=== PATIENT | female | born 1950 | race Caucasian/White ===

== ENCOUNTER 2023-12-17 06:15 | Inpatient (IN) | payer MEDICARE, BC ==
[~2023-12-17] VITALS: Ht 157.5 cm; Wt 84.4 kg
[~2023-12-17 06:15] MED LIST: PAR20T PO; SIMV40TA18 PO
[2023-12-17] MEDS: TRANEXAMIC ACID 20 ML ONE (06:45)
[2023-12-17] MEDS: ceFAZolin 2 GM/D5W50ml 50 ML IV ONE (06:50)
[2023-12-17] MEDS: BUPIVACAINE HCL 50 ML ONE (06:56)
[2023-12-17] MEDS ORDERED: fentaNYL CITRATE 100 MCG/2 ML VL ONE (06:58)
[2023-12-17] MEDS ORDERED: MIDAZOLAM HCL 2MG/2ML 2ml VIAL (1mg/ml) ONE (06:59)
[2023-12-17] MEDS ORDERED: PROPOFOL 10 MG/ML 20 ML IV ONE ×2 (07:01→09:02)
[2023-12-17] MEDS ORDERED: ePHEDrine SULFATE 50 MG/ML AMP ONE (07:42)
[2023-12-17] MEDS: EPINEPHrine HCL 1 MG/1 ML AMP ONE (08:03)
[2023-12-17] MEDS: VANCOMYCIN HCL 1000 MG VL ONE (08:04)
[2023-12-17] MEDS: ROPIVACAINE 0.5% (5MG/ML) 20ML AMPULE IJ ONE (08:04)
[2023-12-17 09:44] VITALS: RESP 15; O2SAT 95
[2023-12-17] MEDS ORDERED: oxyCODONE HCL 5MG TAB PO PRN (09:45)
[2023-12-17] MEDS: D5W/LACTATED RINGERS 1,000 ML IV SCH (09:45)
[2023-12-17] MEDS ORDERED: ACETAMINOPHEN 325 MG TAB PO PRN (09:45)
[2023-12-17] MEDS: ONDANSETRON HCL 4 MG/2 ML VIAL ONE (09:59)
[2023-12-17] MEDS: ONDANSETRON HCL 4 MG/2 ML VIAL IV ONE (10:15)
[2023-12-17 12:21] VITALS: BP 107/55; PULSE 73; RESP 18; TEMP 98.1; O2SAT 93
[2023-12-17] MEDS: ACETAMINOPHEN 325 MG TAB PO SCH (12:47)
[2023-12-17] MEDS: KETOROLAC TROMETH 30 MG/ML 1ML VIAL IV SCH (12:47)
[2023-12-17] MEDS: PREGABALIN 25 MG CAP PO SCH (12:48)
[2023-12-17] MEDS: ceFAZolin 2 GM/D5W50ml 50 ML IV SCH (14:25)
[2023-12-17] MEDS: oxyCODONE HCL 5MG TAB PO PRN (14:26)
[2023-12-17 16:44] VITALS: BP 104/44; PULSE 87; RESP 18; TEMP 98.6; O2SAT 91
[2023-12-17] MEDS: PARoxetine 20 MG TAB PO SCH (17:22)
[2023-12-17] MEDS ORDERED: PATIENTS OWN MEDICATION (Simvastatin 40 MG) PO SCH (18:00)
[2023-12-17 21:00] VITALS: BP 108/48; PULSE 82; RESP 17; TEMP 98; O2SAT 92
[2023-12-17] MEDS: PRAVASTATIN SODIUM 20 MG TAB PO SCH (22:21)
[2023-12-18 01:00] VITALS: BP 104/58; PULSE 86; RESP 16; TEMP 97.7; O2SAT 94
[2023-12-18 05:00] VITALS: BP 104/44; PULSE 79; RESP 18; TEMP 97.4; O2SAT 94
[2023-12-18 06:11] LABS: Basophils # (auto) 0 10 ^3/uL (0-0.2); Basophils % (auto) 0.5 % (0.0-2.0); Eosinophils # (auto) 0.4 10 ^3/uL (0-0.8); Eosinophils % (auto) 5.3 % (0.0-7.0); Hemoglobin 11.7 g/dL (12.2-16.2); Lymphocytes # (auto) 1.5 10 ^3/uL (0.4-5.4); Lymphocytes % (auto) 20.8 % (10.0-50.0); Mean Corpuscular Hemoglobin 29.6 pg (28.0-32.0); Mean Corpuscular Hgb Conc. 33.3 g/dL (32.0-36.0); Mean Corpuscular Volume 88.8 fL (80.0-100.0); Monocytes # (auto) 1.1 10 ^3/uL (0-1.3); Monocytes % (auto) 14.9 % (0.0-12.0); Neutrophils # (auto) 4.2 10 ^3/uL (1.6-8.6); Neutrophils % (auto) 58.5 % (37.0-80.0); Red Blood Cells 3.94 10^6/uL (4.0-5.20); Red Cell Distribution Width 14.3 % (11.8-14.3); White Blood Cell 7.1 10^3/uL (4.4-10.8)
[2023-12-18 06:16] LABS: Chloride 108 mmol/L (98-107); Potassium 4.8 mmol/L (3.5-5.1); Sodium 142 mmol/L (136-145)
[2023-12-18 06:17] LABS: Anion Gap 3 (5-15); Calcium 8.8 mg/dL (8.5-10.1); Carbon Dioxide 31 mmol/L (20-30)
[2023-12-18 06:22] LABS: BUN/Creatinine Ratio 13.2 (10.0-20.0); Blood Urea Nitrogen 9 mg/dL (9-23); Glucose 108 mg/dL (74-106)
[2023-12-18 08:00] VITALS: PULSE 78; RESP 18; O2SAT 98
[2023-12-18 09:00] VITALS: BP 112/52; PULSE 82; RESP 18; TEMP 98; O2SAT 90
[2023-12-18] MEDS: ASPirin 81 mg TAB PO SCH (09:59)
[2023-12-18 12:20] VITALS: BP 112/52; PULSE 82; RESP 18; TEMP 98; O2SAT 90
[2023-12-18 12:43] VITALS: BP 146/43; PULSE 80; RESP 18; TEMP 97.8; O2SAT 94
[2023-12-19 08:56] LABS: Hepatitis B Surface Antigen Negative (Negative)
[2023-12-19 09:17] LABS: Hepatitis C Antibody Negative (Negative)
== END 2023-12-18 15:30 | disposition home or self-care (01) | DRG 470 ==
LOC: SUR 06:15 → OVERFLOW 09:44 → CENTRAL 11:25
PROVIDERS: ADMIT Orthopaedic Surgery; ATTEND Internal Medicine
PROC: 0SRC069 Replacement of Right Knee Joint with Oxidized Zirconium on Polyethylene Synthetic Substitute, Cemented, Open Approach (ICD-10-PCS; principal; 2023-12-17 07:16)
DX: M17.11 Unilateral primary osteoarthritis, right knee (principal); E78.5 Hyperlipidemia, unspecified; E66.9 Obesity, unspecified; F32.A Depression, unspecified; M21.161 Varus deformity, not elsewhere classified, right knee; Z68.34 Body mass index [BMI] 34.0-34.9, adult
CPT/HCPCS: 36415; 73560; 80048; 85025; 86803; 86850; 86900; 86901; 87340; 97110; 97116; 97163; 97530; G0378; J0171; J1885; J2250; J2405; J2704; J3490